=== PATIENT | female | born 1955 | race American Indian/Alaskan Native ===

== ENCOUNTER 2017-04-10 08:14 | Outpatient (CLI) | payer MEDICARE ==
[2017-04-10] MEDS ORDERED: XYLOCAINE TOPICAL 4% TP ONE ×2 (08:42→09:01)
== END 2017-04-10 08:15 | disposition home or self-care (01) ==
LOC: WOUND 08:14
PROVIDERS: ATTEND Surgery
DX: I70.245 Atherosclerosis of native arteries of left leg with ulceration of other part of foot (principal); L97.521 Non-pressure chronic ulcer of other part of left foot limited to breakdown of skin; E05.90 Thyrotoxicosis, unspecified without thyrotoxic crisis or storm; K21.9 Gastro-esophageal reflux disease without esophagitis; I10 Essential (primary) hypertension; F41.9 Anxiety disorder, unspecified; Z87.891 Personal history of nicotine dependence
CPT/HCPCS: 97597; G0463

== ENCOUNTER 2017-04-20 12:05 | Emergency (ER) | payer MEDICARE ==
[2017-04-20 14:18] LABS: Eosinophils % (Auto) 0.1 % (0.0-4.3)
[2017-04-20 14:36] LABS: Anion Gap 20 mmol/L; Blood Urea Nitrogen 8 mg/dL (7-17); Calcium 10.6 mg/dL (8.4-10.2); Carbon Dioxide 24 mmol/L (22-30); Chloride 98.7 mmol/L (98-107); Glucose 100 mg/dL (65-100); Potassium 4.5 mmol/L (3.6-5.0); Sodium 138 mmol/L (137-145)
[2017-04-20 14:38] LABS: Hematocrit 34.9 % (30.3-42.9); Hemoglobin 11.2 gm/dl (10.1-14.3); Mean Corpuscular HGB Conc 32 % (30-34); Mean Corpuscular Hemoglobin 29 pg (28-32); Mean Corpuscular Volume 89 fl (79-97); Red Blood Count 3.92 M/mm3 (3.65-5.03); White Blood Count 4.1 K/mm3 (4.5-11.0)
[2017-04-20 14:39] LABS: Platelet Count 79 K/mm3 (140-440); Red Cell Distribution Width 17.5 % (13.2-15.2)
[2017-04-20 14:40] LABS: Basophils % (Auto) 0.8 % (0.0-1.8)
--- NOTE | 2017-04-20 16:35 | Emergency Department Report ---
ED Extremity Problem HPI - General Chief complaint: Extremity Injury, Lower Stated complaint: LT FOOT PAIN Time Seen by Provider: 04/20/17 16:28 Source: patient Mode of arrival: Ambulatory Limitations: No Limitations - History of Present Illness Initial comments: Patient presents with increasing left foot and toe pain after vascular bypass to the left leg 3 weeks ago. Patient was operated on at [facility] by Dr. Samayoa. She states that her pain was improving until she wore tight shoes approximately one week ago. Now her toes are more painful. She has a walking shoe on. No fevers chills. MD Complaint: extremity pain, cold extremity (dark ischemic appearing toes) Location: left, lower extremity, toe -: No myalgia Consistency: constant Improves with: nothing Worsens with: weight bearing, walking Associated Symptoms: denies: denies other symptoms, chest pain, shortness of breath - Related Data Home Medications Medication Instructions Recorded Confirmed Last Taken Apixaban [Eliquis] 5 mg PO QHS 04/14/16 04/14/16 Unknown Previous Rx's Medication Instructions Recorded Last Taken Type Clindamycin [Clindamycin CAP] 300 mg PO Q8H #21 cap 04/20/17 Unknown Rx oxyCODONE /ACETAMINOPHEN [Percocet 1 tab PO Q6H PRN #15 tablet 04/20/17 Unknown Rx 5/325 mg] Allergies Allergy/AdvReac Type Severity Reaction Status Date / Time ampicillin Allergy Vomiting Verified 06/28/15 19:50 penicillin Allergy Unknown Verified 06/28/15 19:50 ED Review of Systems ROS: Stated complaint: LT FOOT PAIN Other details as noted in HPI Constitutional: see HPI. denies: chills, fever, malaise ENT: denies: ear pain, throat pain Respiratory: denies: cough, orthopnea Cardiovascular: denies: chest pain, palpitations Gastrointestinal: denies: abdominal pain, nausea Skin: change in color (her toes are dark and appeared to be chronically ischemic ) Neurological: denies: headache, weakness, numbness ED Past Medical Hx - Past Medical History Hx Hypertension: Yes Hx Diabetes: No Hx Deep Vein Thrombosis: Yes Hx Arthritis: Yes Hx Psychiatric Treatment: Yes (anxiety) Additional medical history: Trauma induced DVT 2003 and 2008 - Surgical History Additional Surgical History: femoral bypass left leg - Social History Smoking Status: Former Smoker Substance Use Type: None - Medications Home Medications: Home Medications Medication Instructions Recorded Confirmed Last Taken Type Apixaban [Eliquis] 5 mg PO QHS 04/14/16 04/14/16 Unknown History Clindamycin [Clindamycin CAP] 300 mg PO Q8H #21 cap 04/20/17 Unknown Rx oxyCODONE /ACETAMINOPHEN [Percocet 1 tab PO Q6H PRN #15 tablet 04/20/17 Unknown Rx 5/325 mg] ED Physical Exam - General Limitations: No Limitations General appearance: alert, in no apparent distress - Head Head exam: Present: atraumatic, normocephalic - Neck Neck exam: Present: normal inspection, tenderness - Respiratory Respiratory exam: Present: normal lung sounds bilaterally. Absent: respiratory distress, wheezes, rales - Cardiovascular Cardiovascular Exam: Present: regular rate, normal rhythm - GI/Abdominal GI/Abdominal exam: Present: soft. Absent: distended - Expanded Lower Extremity Exam Left Foot/Toe exam: Present: tenderness, swelling, erythema (toes appear ischemic and there is no palpable pulse) - Neurological Exam Neurological exam: Present: alert, oriented X3 - Skin Skin exam: Present: warm, dry ED Course Vital Signs 04/20/17 04/20/17 04/20/17 13:20 16:55 16:56 Temperature 98.4 F Pulse Rate 103 H 87 Respiratory 16 18 18 Rate Blood Pressure 150/91 Blood Pressure 161/77 [Right] O2 Sat by Pulse 100 100 100 Oximetry - Consultations Consultation #1: 04/20/17 17:[address] Kumar [place] vascular surgery. He recommends oral antibiotics as a preventative measure and they will have the patient follow up with them on Sunday. Discharged with significant pain control. ED Medical Decision Making - Lab Data Result diagrams: 04/20/17 13:33 04/20/17 13:33 Laboratory Results - last 24 hr 04/20/17 04/20/17 13:33 13:33 WBC 4.1 L RBC 3.92 Hgb 11.2 Hct 34.9 MCV 89 MCH 29 MCHC 32 RDW 17.5 H Plt Count 79 L Lymph % (Auto) 38.9 H Keith % (Auto) 8.3 H Eos % (Auto) 0.1 Baso % (Auto) 0.8 Lymph # 1.6 Keith # 0.3 Eos # 0.0 Baso # 0.0 Seg Neutrophils % 51.9 Seg Neutrophils # 2.2 Sodium 138 Potassium 4.5 Chloride 98.7 Carbon Dioxide 24 Anion Gap 20 BUN 8 Creatinine 0.5 L Estimated GFR > 60 BUN/Creatinine Ratio 16.00 Glucose 100 Calcium 10.6 H - Medical Decision Making Patient is a 61-year-old female with a chronically ischemic foot and recent bypass to the left leg here with complaints of worsening left foot pain. On clinical exam her toes are dark and appear chronically ischemic. They're painful to the touch. There is not great capillary refill in the toes. There is no palpable pulse. Doppler study did show good flow through the bypass graft and down to the leg. I discussed the case with her vascular surgeon on- call at [place] and he recommends pain control and follow-up with them on Sunday. I'll place her on preventative antibiotics. Portions of this chart were dictated with dictation software. There may be dictation errors contained within this note. Critical care attestation.: If time is entered above; I have spent that time in minutes in the direct care of this critically ill patient, excluding procedure time. ED Disposition Clinical Impression: Lower limb ischemia, Foot pain Disposition: DC- TO HOME OR SELFCARE Is pt being admited?: No Condition: Stable Additional Instructions: Please follow up with her vascular surgeon on Sunday. They plan to call [facility] however she did not hear from them call them first thing on Sunday. Prescriptions: Clindamycin [Clindamycin CAP] 300 mg PO Q8H #21 cap oxyCODONE /ACETAMINOPHEN [Percocet 5/325 mg] 1 tab PO Q6H PRN #15 tablet PRN Reason: Pain, Moderate (4-6)
--- NOTE | 2017-04-20 16:49 | Vascular Lab Report ---
LOWER EXTREMITY ARTERIAL DUPLEX: REASON FOR EXAM: Peripheral arterial disease. COMMENTS ON THE LEFT: Biphasic waveforms are seen proximally. Monophasic waveforms are seen distally. Low noted throughout the bypass without elevated velocities. Posterior tibial arteries and the outflow vessel without elevated velocities.. No focal significant plaque is identified. Findings are consistent with abnormal perfusion. Findings are inconclusive with the ability to heal distal wounds. IMPRESSION: LEFT:Patent left femoral posterior tibial artery bypass. Clinical correlation recommended. Further interrogation with ABIs or CTA should be considered if clinically warranted..
[2017-04-20 16:56] VITALS: BP 161/77
[2017-04-20] MEDS ORDERED: PERCOCET 5/325 ONE (17:50)
[2017-04-20] MEDS ORDERED: PERCOCET 5/325 PO PRN (17:56)
[2017-04-20] MEDS ORDERED: MORPHINE IM ONE (18:23)
[2017-04-20] MEDS ORDERED: CLEOCIN PO ONE (18:23)
== END 2017-04-20 18:45 | disposition home or self-care (01) ==
LOC: ED 12:05
DX: M79.672 Pain in left foot (principal); I99.8 Other disorder of circulatory system; I10 Essential (primary) hypertension; F41.9 Anxiety disorder, unspecified; M19.90 Unspecified osteoarthritis, unspecified site; Z87.891 Personal history of nicotine dependence; Z88.1 Allergy status to other antibiotic agents; Z86.718 Personal history of other venous thrombosis and embolism; Z88.0 Allergy status to penicillin
CPT/HCPCS: 36415; 80048; 85025; 93926; 96372; 99284; J2270

== ENCOUNTER 2017-06-13 08:50 | Emergency (ER) | payer MEDICARE ==
[2017-06-13 08:59] VITALS: BP 174/88
[2017-06-13] MEDS ORDERED: MOTRIN PO ONE (11:48)
--- NOTE | 2017-06-13 15:59 | Emergency Department Report ---
Entered by TOSHA HASSAN, acting as scribe for ANNA MARIE ELLIS PA. ED Eye Problem HPI - General Chief complaint: Eye Problems Stated complaint: LEFT EYE SWELLING/ITCHING Time Seen by Provider: 06/13/17 11:32 Source: patient Mode of arrival: Ambulatory Limitations: No Limitations - History of Present Illness Initial comments: 61 y/o female with a PMHx of HTN, DVT, arthritis, and anxiety presents to the ED c/o gradually worsening left upper eyelid swelling that began 1 day ago. Patient states she woke up with her symptoms. Reports associated left eye itching, but she denies any left eye injury/trauma, left eye pain, blurry vision , foreign body present in eye, fever, chills, nausea, and vomiting. Denies taking any medication or applying topical medication to left eye for relief. Allergic to sulfa, zinc, penicillin, and ampicillin. MD chief complaint: other (left eye swelling) Onset/Timin -: days(s) Onset Description: gradual, unknown, awoke with symptoms Location: left eye Place: home If Injury: none Eye Symptoms: itching Severity: mild Severity scale (0 -10): 3 Consistency: constant Associated Symptoms: none. denies: headache, neck pain, nausea/vomiting, cough , rhinorrhea, fever, shortness of breath Treatments Prior to Arrival: none - Related Data Patient Tetanus UTD: No Home Medications Medication Instructions Recorded Confirmed Last Taken Apixaban [Eliquis] 5 mg PO QHS 04/14/16 04/14/16 Unknown Previous Rx's Medication Instructions Recorded Last Taken Type Clindamycin [Clindamycin CAP] 300 mg PO Q8H #21 cap 04/20/17 Unknown Rx oxyCODONE /ACETAMINOPHEN [Percocet 1 tab PO Q6H PRN #15 tablet 04/20/17 Unknown Rx 5/325 mg] Clindamycin [Clindamycin CAP] 300 mg PO Q6H #20 capsule 06/13/17 Unknown Rx Erythromycin [Erythromycin Ophth 1 applic OP BID #1 tube 06/13/17 Unknown Rx Oint] Ibuprofen [Motrin] 600 mg PO Q8H PRN #25 tablet 06/13/17 Unknown Rx Allergies Allergy/AdvReac Type Severity Reaction Status Date / Time ampicillin Allergy Vomiting Verified 06/28/15 19:50 penicillin Allergy Unknown Verified 06/28/15 19:50 zinc Allergy Itching Verified 06/13/17 08:56 ED Review of Systems Comment: All other systems reviewed and negative Constitutional: denies: chills, fever Eyes: other (left eye swelling and itching). denies: eye pain, eye discharge, vision change ENT: denies: ear pain, throat pain Respiratory: denies: cough, orthopnea, shortness of breath, SOB with exertion, SOB at rest, stridor, wheezing Cardiovascular: denies: chest pain, palpitations, dyspnea on exertion, orthopnea , edema, syncope, paroxysmal nocturnal dyspnea Endocrine: no symptoms reported Gastrointestinal: denies: abdominal pain, nausea, vomiting, diarrhea Musculoskeletal: denies: back pain, joint swelling, arthralgia Skin: denies: rash, lesions Neurological: denies: headache, weakness, numbness, paresthesias ED Past Medical Hx - Past Medical History Previous Medical History?: Yes Hx Hypertension: Yes Hx Diabetes: No Hx Deep Vein Thrombosis: Yes Hx Arthritis: Yes Hx Psychiatric Treatment: Yes (anxiety) Additional medical history: Trauma induced DVT 2003 and 2008 - Surgical History Past Surgical History?: Yes Additional Surgical History: femoral bypass left leg - Family History Family history: no significant - Social History Smoking Status: Never Smoker Substance Use Type: None - Medications Home Medications: Home Medications Medication Instructions Recorded Confirmed Last Taken Type Apixaban [Eliquis] 5 mg PO QHS 04/14/16 04/14/16 Unknown History Clindamycin [Clindamycin CAP] 300 mg PO Q8H #21 cap 04/20/17 Unknown Rx oxyCODONE /ACETAMINOPHEN [Percocet 1 tab PO Q6H PRN #15 tablet 04/20/17 Unknown Rx 5/325 mg] Clindamycin [Clindamycin CAP] 300 mg PO Q6H #20 capsule 06/13/17 Unknown Rx Erythromycin [Erythromycin Ophth 1 applic OP BID #1 tube 06/13/17 Unknown Rx Oint] Ibuprofen [Motrin] 600 mg PO Q8H PRN #25 tablet 06/13/17 Unknown Rx ED Physical Exam - General Limitations: No Limitations General appearance: alert, in no apparent distress - Head Head exam: Present: atraumatic, normocephalic - Eye Eye exam: Present: PERRL, EOMI, other (left upper eyelid swelling, no stye present). Absent: normal appearance, scleral icterus, conjunctival injection, nystagmus, periorbital swelling, periorbital tenderness Pupils: Present: normal accommodation - Expanded Eye Exam Expanded Eyelids: Normal Inspection: Right, Swelling: Left Pupils: Regular, Round: Bilateral Sclera/Conjunctival: Normal Inspection: Bilateral Visual acuity (L) = 20/: 30 With correction: No - ENT ENT exam: Present: normal exam, normal orophraynx, mucous membranes moist, TM's normal bilaterally, normal external ear exam - Neck Neck exam: Present: normal inspection, full ROM. Absent: tenderness, meningismus, lymphadenopathy, thyromegaly - Respiratory Respiratory exam: Present: normal lung sounds bilaterally. Absent: respiratory distress, wheezes, rales, rhonchi, stridor, accessory muscle use, decreased breath sounds - Cardiovascular Cardiovascular Exam: Present: regular rate, normal rhythm, normal heart sounds. Absent: systolic murmur, diastolic murmur, rubs, gallop - GI/Abdominal GI/Abdominal exam: Present: soft, normal bowel sounds. Absent: distended - Extremities Exam Extremities exam: Present: normal inspection, full ROM, normal capillary refill - Back Exam Back exam: Present: normal inspection, full ROM - Neurological Exam Neurological exam: Present: alert, oriented X3 - Psychiatric Psychiatric exam: Present: normal affect, normal mood - Skin Skin exam: Present: warm, dry, intact, normal color. Absent: rash ED Course Vital Signs 06/13/17 08:56 Temperature 97.3 F L Pulse Rate 68 Respiratory 16 Rate Blood Pressure 174/88 O2 Sat by Pulse 100 Oximetry ED Medical Decision Making - Medical Decision Making A/P: Blepharitis of the left upper eyelid 1-motrin when necessary, 2-erythromycin ointment 3-short course clindamycin 4- and instructed to use warm compresses when necessary ED Disposition Clinical Impression: Blepharitis of left eye Qualifiers: Blepharitis type: unspecified type Eyelid: upper Qualified Code(s): H01.004 - Unspecified blepharitis left upper eyelid Disposition: - TO HOME OR SELFCARE Is pt being admited?: No Does the pt Need Aspirin: No Condition: Stable Instructions: Blepharitis (ED) Prescriptions: Clindamycin [Clindamycin CAP] 300 mg PO Q6H #20 capsule Erythromycin [Erythromycin Ophth Oint] 1 applic OP BID #1 tube Ibuprofen [Motrin] 600 mg PO Q8H PRN #25 tablet PRN Reason: Pain Referrals: LIYA POSADAS MD [Staff Physician] - 3-5 Days CECILIA MONTANEZ MD [Primary Care Provider] - 3-5 Days Time of Disposition: 15:59 This documentation as recorded by the MO ibarra JASMINE,accurately reflects the service I personally performed and the decisions made by ,ANNA MARIE ELLIS, PA.
== END 2017-06-13 11:55 | disposition home or self-care (01) ==
LOC: ED 08:50
DX: H01.004 Unspecified blepharitis left upper eyelid (principal); I10 Essential (primary) hypertension
CPT/HCPCS: 99282

== ENCOUNTER 2017-06-26 16:03 | Emergency (ER) | payer MEDICARE ==
--- NOTE | 2017-06-26 16:23 | Emergency Department Report ---
Stated Complaint: NECROTIC TOE PAIN - 3 MONTHS Time Seen by Provider: 06/26/17 16:20 - HPI History of Present Illness: PT c/o L foot pain. PT states she has been wound care at home. PT states she is taking Tylenol without relief. - ROS Review of Systems: wound + swelling - fever - Exam Physical Exam: L great toe with wound surrounding nail bed + pedal edema noted MSE screening note: Focused history and physical exam performed. Due to findings the following was ordered: labs, xr ED Disposition for MSE Condition: Stable
[2017-06-26 17:05] LABS: Alanine Aminotransferase 8 units/L (7-56); Albumin 4.3 g/dL (3.9-5); Albumin/Globulin Ratio 1.1 %; Alkaline Phosphatase 119 units/L (35-129); Anion Gap 15 mmol/L; BUN/Creatinine Ratio 22.85; Blood Urea Nitrogen 16 mg/dL (7-17); Calcium 9.4 mg/dL (8.4-10.2); Carbon Dioxide 26 mmol/L (22-30); Chloride 101.8 mmol/L (98-107); Eosinophils % (Auto) 1.3 % (0.0-4.3); Glucose 89 mg/dL (65-100); Hematocrit 40.8 % (30.3-42.9); Mean Corpuscular HGB Conc 32 % (30-34); Mean Corpuscular Hemoglobin 30 pg (28-32); Mean Corpuscular Volume 95 fl (79-97); Potassium 4.2 mmol/L (3.6-5.0); Red Blood Count 4.31 M/mm3 (3.65-5.03); Red Cell Distribution Width 15.3 % (13.2-15.2); Sodium 139 mmol/L (137-145); Total Protein 8.1 g/dL (6.3-8.2); White Blood Count 4.5 K/mm3 (4.5-11.0)
[2017-06-26 17:10] LABS: Platelet Count 81 K/mm3 (140-440)
[2017-06-26 17:13] LABS: INR 1.12 (0.87-1.13)
[2017-06-26 17:14] LABS: Partial Thromboplastin Time 50.9 Sec. (24.2-36.6)
[2017-06-27] MEDS ORDERED: PERCOCET 5/325 PO ONE (00:06)
--- NOTE | 2017-06-27 00:22 | Emergency Department Report ---
HPI - General Chief Complaint: Extremity Injury, Lower Time Seen by Provider: 06/26/17 16:20 - HPI HPI: Room 6 The patient is a 61-year-old female presented with a chief complaint of right foot pain. The patient states for 5 years she's had intermittent pain and numbness along the instep of her left foot radiating to the sole. The patient states she believes she has tarsal tunnel syndrome and has been bothering her intermittently for the past 5 years. Patient states she has not seen an orthopedic surgeon for this yet. The patient has a chronic left great toe wound from peripheral vascular disease and underwent a femoropopliteal bypass in March 2017 at [facility]. The patient states her foot pain is preceded her peripheral vascular disease and believes it is unrelated. Patient denies any recent trauma or fever. Patient currently gets her pain score 10/10. The patient has been debriding her left great toe herself does not wish to have emergency medical staff treated. The patient states she has an appointment to see her specialist at [facility] in 2 days. Location: Left foot Duration: Intermittently 5 years Quality:, Burning, Numbness Severity: 10/10 Modifying factors: [see above] Context: [see above] Mode of transportation: [not driving] ED Past Medical Hx - Past Medical History Hx Hypertension: Yes Hx Deep Vein Thrombosis: Yes Hx Arthritis: Yes Hx Psychiatric Treatment: Yes (anxiety) Additional medical history: Trauma induced DVT 2003 and 2008 - Surgical History Past Surgical History?: No Additional Surgical History: femoral bypass left leg - Family History Family history: no significant - Social History Smoking Status: Never Smoker Substance Use Type: None - Medications Home Medications: Home Medications Medication Instructions Recorded Confirmed Last Taken Type Apixaban [Eliquis] 5 mg PO QHS 04/14/16 04/14/16 Unknown History Clindamycin [Clindamycin CAP] 300 mg PO Q8H #21 cap 04/20/17 Unknown Rx oxyCODONE /ACETAMINOPHEN [Percocet 1 tab PO Q6H PRN #15 tablet 04/20/17 Unknown Rx 5/325 mg] Clindamycin [Clindamycin CAP] 300 mg PO Q6H #20 capsule 06/13/17 Unknown Rx Erythromycin [Erythromycin Ophth 1 applic OP BID #1 tube 06/13/17 Unknown Rx Oint] Ibuprofen [Motrin] 600 mg PO Q8H PRN #25 tablet 06/13/17 Unknown Rx oxyCODONE /ACETAMINOPHEN [Percocet 1 - 2 tab PO Q6HR PRN #20 tablet 06/27/17 Unknown Rx 5/325] ED Review of Systems ROS: Stated complaint: NECROTIC TOE PAIN - 3 MONTHS Other details as noted in HPI Comment: All other systems reviewed and negative Constitutional: denies: fever Musculoskeletal: myalgia Neurological: paresthesias Psychiatric: denies: anxiety, depression Physical Exam - Physical Exam Vital Signs: Vital Signs 06/26/17 06/26/17 16:21 23:10 Temperature 97.4 F L 98.0 F Pulse Rate 73 77 Respiratory 16 18 Rate Blood Pressure 180/89 182/87 O2 Sat by Pulse 100 100 Oximetry Physical Exam: GENERAL: The patient is well-developed well-nourished female lying on stretcher not appearing to be in acute distress. [] HEENT: Normocephalic. Atraumatic. NECK: Trachea midline CHEST/LUNGS: There is no respiratory distress noted. ABDOMEN: There is no abdominal distention. SKIN: There is hyperpigmentation, edema and chronic appearing wound with pink granulation tissue overlying the left great toe. There is no increased warmth NEURO: The patient is awake, alert, and oriented. The patient is cooperative. The patient has normal speech MUSCULOSKELETAL: There is no evidence of acute injury. ED Course Vital Signs 06/26/17 06/26/17 16:21 23:10 Temperature 97.4 F L 98.0 F Pulse Rate 73 77 Respiratory 16 18 Rate Blood Pressure 180/89 182/87 O2 Sat by Pulse 100 100 Oximetry ED Medical Decision Making - Lab Data Result diagrams: 06/26/17 16:31 06/26/17 16:31 Laboratory Tests 06/26/17 06/26/17 06/26/17 16:31 16:31 16:31 WBC 4.5 RBC 4.31 Hgb 13.0 Hct 40.8 MCV 95 MCH 30 MCHC 32 RDW 15.3 H Plt Count 81 L Lymph % (Auto) 44.8 H [place] % (Auto) 6.6 Eos % (Auto) 1.3 Baso % (Auto) 1.0 Lymph # 2.0 [place] # 0.3 Eos # 0.1 Baso # 0.0 Seg Neutrophils % 46.3 Seg Neutrophils # 2.1 PT 14.3 INR 1.12 APTT 50.9 H Sodium 139 Potassium 4.2 Chloride 101.8 Carbon Dioxide 26 Anion Gap 15 BUN 16 Creatinine 0.7 Estimated GFR > 60 BUN/Creatinine Ratio 22.85 Glucose 89 Calcium 9.4 Total Bilirubin 0.40 AST 16 ALT 8 Alkaline Phosphatase 119 Total Protein 8.1 Albumin 4.3 Albumin/Globulin Ratio 1.1 - Radiology Data Radiology results: image reviewed (left foot x-ray) interpreted by me: Left foot [id number]. No acute fractures - Differential Diagnosis neuropathy, tarsal tunnel syndrome, plantar fasciitis, heel spur Critical care attestation.: If time is entered above; I have spent that time in minutes in the direct care of this critically ill patient, excluding procedure time. ED Disposition Clinical Impression: Left foot pain Disposition: TO HOME OR SELFCARE Is pt being admited?: No Does the pt Need Aspirin: No Condition: Stable Additional Instructions: Return to the emergency department immediately should you develop worsening symptoms, fever, inability to tolerate food or liquid or any other concerns. Prescriptions: oxyCODONE /ACETAMINOPHEN [Percocet 5/325] 1 - 2 tab PO Q6HR PRN #20 tablet PRN Reason: Pain Referrals: CECILIA MONTANEZ MD [Primary Care Provider] - 3-5 Days FESTUS DC MD [Staff Physician] - 3-5 Days (Dr. Dc is an orthopedic surgeon. Please follow up with him or Dr. Huerta for further evaluation) PEPE HUERTA MD [Staff Physician] - 3-5 Days (Dr. Huerta is an orthopedic surgeon. Please follow up with him with or Dr. Dc for further evaluation) Time of Disposition: 00:25
[2017-06-27 01:06] VITALS: BP 160/96
--- NOTE | 2017-06-27 08:58 | XRay Report ---
LEFT FOOT RADIOGRAPHS INDICATION: Pain and swelling, wound. COMPARISON: 04/15/2016. FINDINGS: AP, lateral and oblique left foot radiographs demonstrate increased osteoporosis, limiting bony evaluation, though without significant focal erosions or destruction. Mild plantar soft tissue heterogeneity/swelling along the great toe and the first MTP joint now not excluded. Diffuse foot soft tissue swelling along the dorsum also suspected, some possibly extending to the ankle. Small plantar calcaneal spur again noted. CONCLUSION: 1. Significant interval bony demineralization, limiting assessment for subtle bony abnormality or erosions. 2. Left foot soft tissue swelling is new, greatest along the dorsum and also possibly the distal plantar aspect. No radiopaque foreign body however. Please also correlate clinically and note that osteomyelitis assessment may be better achieved with an MRI, if warranted. Thank you for the opportunity to participate in this patient's care.
== END 2017-06-27 01:03 | disposition home or self-care (01) ==
LOC: ED 16:03
DX: M79.672 Pain in left foot (principal); I10 Essential (primary) hypertension; I82.409 Acute embolism and thrombosis of unspecified deep veins of unspecified lower extremity; F41.9 Anxiety disorder, unspecified; M19.90 Unspecified osteoarthritis, unspecified site; Z88.0 Allergy status to penicillin; Z88.1 Allergy status to other antibiotic agents; G89.29 Other chronic pain
CPT/HCPCS: 36415; 80053; 85025; 85610; 85730; 99284

== ENCOUNTER 2018-01-10 13:07 | Outpatient (CLI) | payer MEDICARE ==
[2018-01-10] MEDS ORDERED: XYLOCAINE TOPICAL 4% TP ONE (13:45)
== END 2018-01-10 13:08 | disposition home or self-care (01) ==
LOC: WOUND 13:07
PROVIDERS: ATTEND Nurse Practitioner
DX: I70.245 Atherosclerosis of native arteries of left leg with ulceration of other part of foot (principal); L97.521 Non-pressure chronic ulcer of other part of left foot limited to breakdown of skin; M86.172 Other acute osteomyelitis, left ankle and foot; E05.90 Thyrotoxicosis, unspecified without thyrotoxic crisis or storm; K21.9 Gastro-esophageal reflux disease without esophagitis; I73.9 Peripheral vascular disease, unspecified; I10 Essential (primary) hypertension; Z87.891 Personal history of nicotine dependence
CPT/HCPCS: 99215; G0463

== ENCOUNTER 2018-01-17 13:02 | Outpatient (CLI) | payer MEDICARE | END 2018-01-17 13:03 | disposition home or self-care (01) | LOC: WOUND 13:02 | PROVIDERS: ATTEND Nurse Practitioner | DX: I70.245 Atherosclerosis of native arteries of left leg with ulceration of other part of foot (principal); L97.521 Non-pressure chronic ulcer of other part of left foot limited to breakdown of skin; E11.51 Type 2 diabetes mellitus with diabetic peripheral angiopathy without gangrene; E11.69 Type 2 diabetes mellitus with other specified complication; M86.172 Other acute osteomyelitis, left ankle and foot; E05.90 Thyrotoxicosis, unspecified without thyrotoxic crisis or storm; K21.9 Gastro-esophageal reflux disease without esophagitis; I10 Essential (primary) hypertension; Z87.891 Personal history of nicotine dependence | CPT/HCPCS: 99214; G0463 ==

== ENCOUNTER 2018-01-31 09:36 | Outpatient (CLI) | payer MEDICARE ==
[2018-01-31] MEDS ORDERED: XYLOCAINE TOPICAL 4% TP ONE (10:01)
== END 2018-01-31 09:37 | disposition home or self-care (01) ==
LOC: WOUND 09:36
PROVIDERS: ATTEND Nurse Practitioner
DX: I70.245 Atherosclerosis of native arteries of left leg with ulceration of other part of foot (principal); L97.521 Non-pressure chronic ulcer of other part of left foot limited to breakdown of skin; E05.90 Thyrotoxicosis, unspecified without thyrotoxic crisis or storm; K21.9 Gastro-esophageal reflux disease without esophagitis; I73.9 Peripheral vascular disease, unspecified; I10 Essential (primary) hypertension; Z87.891 Personal history of nicotine dependence
CPT/HCPCS: 99214; G0463